=== PATIENT | male | born 1995 | race Two or more races ===

== ENCOUNTER 2023-03-14 14:41 | Emergency (ER) | payer OTHER ==
[~2023-03-14] VITALS: Ht 182.9 cm; Wt 89.8 kg
[2023-03-14] MEDS ORDERED: TRIA15OI2 TP (15:51)
[2023-03-14] MEDS ORDERED: SULF1TAB48 PO (15:51)
[2023-03-14] MEDS ORDERED: SULFAMETH/TRIMETH 800/160 MG 1 UDTAB TABLET ONE (15:55)
[2023-03-14] MEDS: SULFAMETH/TRIMETH 800/160 MG 1 UDTAB TABLET PO ONE ×2 (15:55→16:04)
[2023-03-14 16:05] VITALS: BP 132/82; TEMP 97.7; O2SAT 100
== END 2023-03-14 16:05 | disposition home or self-care (01) ==
LOC: ER 14:49
DX: R21 Rash and other nonspecific skin eruption (principal); J45.909 Unspecified asthma, uncomplicated; Z60.2 Problems related to living alone

== ENCOUNTER 2024-10-11 13:39 | Emergency (ER) | payer OTHER ==
[~2024-10-11] VITALS: Ht 182.9 cm; Wt 90.3 kg
[~2024-10-11 13:39] MED LIST: SULF1TAB48 PO; TRIA15OI2 TP
[2024-10-11] MEDS ORDERED: CEPH-570 PO (14:44)
[2024-10-11] MEDS ORDERED: SULF1TAB48 PO (14:44)
[2024-10-11 17:16] VITALS: BP 123/71; TEMP 98.6; O2SAT 99
== END 2024-10-11 17:17 | disposition home or self-care (01) ==
LOC: ER 13:55
DX: L03.115 Cellulitis of right lower limb (principal); J45.909 Unspecified asthma, uncomplicated; Z79.899 Other long term (current) drug therapy
CPT/HCPCS: 93971-TC

== ENCOUNTER 2024-10-19 12:38 | Emergency (ER) | payer OTHER ==
[~2024-10-19] VITALS: Ht 182.9 cm; Wt 85.3 kg
[~2024-10-19 12:38] MED LIST changes: +CEPH-570 PO
[2024-10-19 12:58] VITALS: BP 111/74; TEMP 98.3
[2024-10-19 14:28] LABS: BASOPHILS # (AUTO) 0.1 K/uL (0.0-0.2); BASOPHILS % (AUTO) 1.1 % (0.0-2.0); EOSINOPHILS # (AUTO) 0.2 K/uL (0.0-0.7); EOSINOPHILS % (AUTO) 2.3 % (0.0-6.0); HEMATOCRIT 42 % (39-51); HEMOGLOBIN 14.2 g/dL (13.5-17.5); LYMPHOCYTES # (AUTO) 2.2 K/uL (0.8-4.8); LYMPHOCYTES % (AUTO) 30.4 % (20.0-44.0); MEAN CORPUSCULAR HEMOGLOBIN 29 PG (26.0-33.0); MEAN CORPUSCULAR HGB CONC 34 g/dl (31.0-36.0); MEAN CORPUSCULAR VOLUME 86 fL (80-96); MONOCYTES # (AUTO) 0.7 K/uL (0.1-1.30); MONOCYTES % (AUTO) 9.6 % (2.0-12.0); NEUTROPHILS # (AUTO) 4.1 K/uL (1.8-8.9); NEUTROPHILS % (AUTO) 56.6 % (43.0-81.0); PLATELET COUNT (AUTO) 334 K/uL (150-450); RED BLOOD CELL COUNT(AUTO) 4.88 MIL/uL (4.5-6.0); RED CELL DISTRIBUTION WIDTH 14.9 % (11.5-15.0); WHITE BLOOD COUNT (AUTO) 7.3 K/uL (4.3-11.0)
[2024-10-19] MEDS ORDERED: CEPH-570 PO (15:16)
[2024-10-19] MEDS ORDERED: SULF1TAB48 PO (15:16)
[2024-10-19 15:20] VITALS: O2SAT 98
== END 2024-10-19 15:27 | disposition home or self-care (01) ==
LOC: ER 12:44
DX: L03.115 Cellulitis of right lower limb (principal); J45.909 Unspecified asthma, uncomplicated; Z79.2 Long term (current) use of antibiotics
CPT/HCPCS: 36415; 73590-TC; 85025-TC

== ENCOUNTER 2024-10-25 10:26 | Emergency (ER) | payer OTHER ==
[~2024-10-25] VITALS: Ht 182.9 cm; Wt 87.1 kg
[2024-10-25 10:31] VITALS: BP 104/61; TEMP 98.4
[2024-10-25] MEDS ORDERED: CEPH-570 PO (10:48)
[2024-10-25] MEDS ORDERED: SULF1TAB48 PO (10:48)
[2024-10-25 10:51] VITALS: O2SAT 99
== END 2024-10-25 10:51 | disposition home or self-care (01) ==
LOC: ER 10:32
DX: L03.116 Cellulitis of left lower limb (principal); Z79.899 Other long term (current) drug therapy

== ENCOUNTER 2024-10-31 10:32 | Emergency (ER) | payer OTHER ==
[~2024-10-31] VITALS: Ht 182.9 cm; Wt 90.0 kg
[2024-10-31 10:44] VITALS: BP 106/70; TEMP 97.7
[2024-10-31 11:26] VITALS: O2SAT 98
== END 2024-10-31 11:27 | disposition home or self-care (01) ==
LOC: ER 10:32
DX: L03.115 Cellulitis of right lower limb (principal); Z79.899 Other long term (current) drug therapy; Z60.2 Problems related to living alone